=== PATIENT | male | born 1985 | race Caucasian/White ===

== ENCOUNTER 2019-08-13 08:51 | Emergency (ER) | payer OTHER ==
[~2019-08-13] VITALS: Ht 185.4 cm; Wt 199.0 kg
--- NOTE | 2019-08-13 09:40 | PHYS DOC ---
General Adult EDM: Chief Complaint: MULTIPLE COMPLAINTS HPI: HPI: 34-year-old male presents with bilateral axillary lymph node swelling. The patient has had a weird constellation of symptoms from headache to fatigue to lymph node swelling in his neck and now bilateral axilla. He has been staying home as much as possible during the COVID-19 outbreak. He has no specific risk factors for it. His family was recently tested for strep and his son was positive but he and his are negative. He was tested for COVID-19, but the test is not back yet. He presents today because he just does not understand what all these weird symptoms mean. He is concerned about the axillary lymph no de swelling. He is still able to exercise and run, but his exercise tolerance is greatly reduced. 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 He denies fever chills. Review of Systems: Review of Systems: Constitutional: Fatigue. Denies fever or chills Eyes: Denies change in visual acuity HENT: Denies nasal congestion or sore throat Respiratory: Denies cough or shortness of breath Cardiovascular: Denies chest pain or edema GI: Denies abdominal pain, nausea, vomiting, bloody stools or diarrhea : Denies dysuria Musculoskeletal: Denies back pain or joint pain Integument: Denies rash Neurologic: Denies headache, focal weakness or sensory changes Endocrine: Denies polyuria or polydipsia Lymphatic: Bilateral enlarged lymph nodes of the axilla Psychiatric: Denies depression or anxiety Heart Score: Risk Factors: Risk Factors: DM, Current or recent (<one month) smoker, HTN, HLP, family history of CAD, obesity. Risk Scores: Score 0 - 3: 2.5% MACE over next 6 weeks - Discharge Home Score 4 - 6: 20.3% MACE over next 6 weeks - Admit for Clinical Observation Score 7 - 10: 72.7% MACE over next 6 weeks - Early Invasive Strategies Physical Exam: PE: Constitutional: Well developed, well nourished, no acute distress, non-toxic appearance. [] HENT: Normocephalic, atraumatic, bilateral external ears normal, oropharynx moist, no oral exudates, nose normal. [] Eyes: PERRLA, EOMI, conjunctiva normal, no discharge. [] Neck: Normal range of motion, no tenderness, supple, no stridor. [] Cardiovascular:Heart rate regular rhythm, no murmur [] Lungs & Thorax: Bilateral breath sounds clear to auscultation [] Abdomen: Bowel sounds normal, soft, no tenderness, no masses, no pulsatile masses. [] Skin: Warm, dry, no erythema, no rash. Palpable lymph nodes in the bilateral axilla. [] Back: No tenderness, no CVA tenderness. [] Extremities: No tenderness, no cyanosis, no clubbing, ROM intact, no edema. [] Neurologic: Alert and oriented X 3, normal motor function, normal sensory function, no focal deficits noted. [] Psychologic: Affect normal, judgement normal, mood concerned. [] EKG: EKG: [] Radiology/Procedures: Radiology/Procedures: [] Impressions: CT ABD PELV W/ IV CONTRST ONLY History: Reason: RLQ abdominal pain Technique: After the administration of intravenous contrast, CT imaging was performed of the abdomen and pelvis. Multiplanar images are reviewed. Exposure: One or more of the following individualized dose reduction techniques were utilized for this examination: 1. Automated exposure control 2. Adjustment of the mA and/or kV according to patient size 3. Use of iterative reconstruction technique. Comparison: None Findings: Lower chest: No consolidation or pleural effusion. Abdomen and pelvis: The liver, spleen, adrenal glands, pancreas and gallbladder are unremarkable. No biliary ductal dilatation. Normal appearance of the kidneys. No hydronephrosis. 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 No occlusion. The duodenum is involved in the swirling. No evidence of bowel obstruction. Postoperative changes gastric bypass. Normal appendix. Small mesenteric lymph nodes. No pathologically enlarged lymph nodes. No ascites. IUD noted within the uterus. Mild atheromatous plaque throughout the nonaneurysmal abdominal aorta and branch vessels. Bones: Multilevel lumbar spondylosis most prominent L4-L5. Mild to moderate canal narrowing L4-L5. Impression: 1. 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 No occlusion. No evidence of bowel obstruction. 2. Postop changes gastric bypass. Electronically signed by: Hussain Merritt DO (08/13/2019 8:54 AM) [id number] DICTATED AND SIGNED BY: HUSSAIN MERRITT DO DATE: 08/13/19 3015 CC: ERIKA BLOCK DO; PCP,NO ~ Course & Med Decision Making: Course & Med Decision Making Pertinent Labs and Imaging studies reviewed. (See chart for details) The patient's labs are unremarkable. His CT does not show any abnormal findings. It still possible that this is COVID-19 related. I have advised that he wait for the results of his test. He can follow-up with his primary care physician. He is stable for discharge at this time. [] Dragon Disclaimer: Dragmeredith Disclaimer: This electronic medical record was generated, in whole or in part, using a voice recognition dictation system. Departure Departure: Impression: Primary Impression: Viral syndrome Disposition: HOME/RESIDENCE PRIOR TO ADM Condition: STABLE Referrals: EMMANUEL KEITH (PCP) Patient Instructions: Viral Syndrome ERIKA BLOCK DO August 13, 2019 09:40
[2019-08-13] MEDS ORDERED: IV NORMAL SALINE 1,000ML 1,000 ML IV ONE (09:45)
[2019-08-13] MEDS ORDERED: IOHEXOL 300 MG/ML 75 ML VIAL. IV ONE (09:45)
[2019-08-13 10:16] LABS: BASO % 0 % (0-3); EOS # 0.1 x10^3/uL (0.0-0.7); EOS % 2 % (0-3); HEMATOCRIT 45.7 % (39.0-53.0); HEMOGLOBIN 15.9 g/dL (13.0-17.5); LYMPH # 1.9 x10^3/uL (1.0-4.8); LYMPH % 32 % (24-48); MEAN CORPUSCULAR HEMOGLOBIN 32 pg (25-35); MEAN CORPUSCULAR HGB CONC 35 g/dL (31-37); MEAN CORPUSCULAR VOLUME 91 fL (79-100); MONO # 0.4 x10^3/uL (0.0-1.1); MONO % 6 % (0-9); NEUT # 3.7 x10^3uL (1.8-7.7); NEUT % 60 % (31-73); PLATELET COUNT 199 x10^3/uL (140-400); RED BLOOD COUNT 5.02 x10^6/uL (4.30-5.70); RED CELL DISTRIBUTION WIDTH 11.9 % (11.5-14.5); WHITE BLOOD COUNT 6.1 x10^3/uL (4.0-11.0)
[2019-08-13 10:19] LABS: CALCIUM 9.4 mg/dL (8.5-10.1); POTASSIUM 4.1 mmol/L (3.5-5.1)
[2019-08-13 10:26] LABS: ALBUMIN 4.3 g/dL (3.4-5.0); ALBUMIN/GLOBULIN RATIO 1.3 (1.0-1.7); TOTAL BILIRUBIN 0.8 mg/dL (0.2-1.0); TOTAL PROTEIN 7.5 g/dL (6.4-8.2)
--- NOTE | 2019-08-13 10:33 | RAD ---
CT CHEST WO CONTRAST History: Swollen axillary lymph nodes. Technique: Noncontrast CT of the chest was performed. Coronal and sagittal reconstructions were performed. Exposure: One or more of the following individualized dose reduction techniques were utilized for this examination: 1. Automated exposure control 2. Adjustment of the mA and/or kV according to patient size 3. Use of iterative reconstruction technique. Comparison: None Findings: Chest: No pathologic axillary, mediastinal or hilar lymph nodes. Calcified left hilar lymph node and calcified left upper lobe nodule, likely prior granulomatous disease. No consolidation or pleural effusion. 2 mm right middle lobe anterior pleural-based nodule (series 2 image 77). Mild gynecomastia. Upper abdomen: The imaged upper abdomen is unremarkable. Bones: No pathologic osseous lesions. Postoperative changes lower cervical spine. Impression: 1. No acute thoracic pathology. No pathologic lymphadenopathy. 2. Tiny right middle lobe pulmonary nodule. If high risk recommend one-year follow-up. Electronically signed by: Hussain Lucas DO (08/13/2019 10:30 AM) [id number]
[2019-08-13 11:05] VITALS: BP 130/72
== END 2019-08-13 11:10 | disposition home or self-care (01) ==
LOC: ER 08:51
DX: B34.9 Viral infection, unspecified (principal)
CPT/HCPCS: 36415; 71250; 80053; 82550; 85025; 85379; 86140; 99284-25; J7030

== ENCOUNTER → 2020-03-06 | Outpatient (CLI) | payer OTHER ==
--- NOTE | 2020-03-06 09:02 | RAD ---
PQRS Compliance Statement: One or more of the following individualized dose reduction techniques were utilized for this examinat ion: 1. Automated exposure control 2. Adjustment of the mA and/or kV according to patient size 3. Use of iterative reconstruction technique CT THORAX WO 03/06/2020 7:48 AM Indication: Left lobe lung nodule COMPARISON: CT chest 08/13/2019 TECHNIQUE: Multiple axial CT images of the chest were obtained with intravenous contrast. Coronal and sagittal reformats are provided. FINDINGS: There is a 5 mm calcified granuloma in the left upper lobe. 2 mm subpleural solid noncalcified pulmon joe nodule identified in the super segment left lower lobe (series 2, image 120). No pleural effusion s, pulmonary vascular congestion or pneumothorax. Lungs are clear. Stable 3 mm solid noncalcified pul monary nodule in the lateral segment right middle lobe (series 2, image 218). No new or enlarging manny id noncalcified pulmonary nodules. Thyroid gland is normal in appearance. Anterior cervical discectom y and fusion hardware within the lower cervical spine is only partially profiled. No suspicious osseo us abnormality is identified. Heart size is within normal limits. No pericardial effusion. Thoracic a stephnaia is normal in course and caliber. Visualized portions of the upper abdomen appear normal. IMPRESSION: Stable 3 mm solid noncalcified pulmonary nodule in the right middle lobe and 2 mm nodule in the super ior segment left lower lobe. Findings favor benign etiology in this age group such as noncalcified gr anulomatous disease. Electronically signed by: Margaret Manriquez MD (03/06/2020 8:59 AM) [facility]
== END ==
LOC: CT 07:44
PROVIDERS: ATTEND Nurse Practitioner Family
DX: R91.1 Solitary pulmonary nodule (principal); M43.22 Fusion of spine, cervical region
CPT/HCPCS: 71250

== ENCOUNTER 2020-07-25 11:39 | Emergency (ER) | payer OTHER ==
[~2020-07-25] VITALS: Ht 185.4 cm; Wt 86.8 kg
--- NOTE | 2020-07-25 12:09 | PHYS DOC ---
Past History Past Medical History: Other Additional Past Medical Histor: C7 FUSION, ULNAR DECOMPRESSION, HERNIA REPAIR Alcohol Use: Occasionally Adult General Chief Complaint Chief Complaint: NEAR [facility] HPI Patient is an otherwise healthy, 35-year-old male in the who presents for chief complaint of lightheadedness. States that he got up this morning and ran 3 miles as he does every morning, and ate some oatmeal and went to work. States that while he was at work sitting at his desk during a video call, felt lightheaded. States that lasted a few minutes and then went away. States he got up, got some water and came back and sat down and he had another episode of the same. States that currently in the ED, he has no symptoms but was directed to the ED by superiors. Denies any recent travel, illnesses, traumas, fevers, cold/flu/Covid symptoms, or known ill contacts. States he has been eating normally for him. States he does not drink a whole lot of water though and his urine has been dark over the last day but denies any dysuria or hematuria. Denies any family history of thyroid issues, cardiovascular disease at his age. Review of Systems Review of Systems Review of systems otherwise unremarkable except noted in HPI Allergies Allergies Allergies Coded Allergies Type Severity Reaction Last Updated Verified iohexol Allergy Intermediate RASH 08/13/19 Yes Physical Exam Physical Exam Constitutional: Well developed, well nourished, no acute distress, non-toxic appearance. [] HENT: Normocephalic, atraumatic, oropharynx dry, no oral exudates Eyes: PERRLA, EOMI, conjunctiva normal, no discharge. [] Neck: Normal range of motion, Cardiovascular:Heart rate regular rhythm, no murmur [] Lungs & Thorax: No respiratory distress Abdomen: soft, no tenderness, no masses, no pulsatile masses. [] Skin: Warm, dry, no erythema, no rash. [] Back: no CVA tenderness. [] Extremities: No tenderness, no cyanosis, no clubbing, ROM intact, no edema. [] Neurologic: Alert and oriented X 3, normal motor function, normal sensory function, cranial nerves intact, able to ambulate without issue no focal deficits noted. [] Psychologic: Affect normal, judgement normal, mood normal. [] EKG EKG [] Radiology/Procedures Radiology/Procedures [] Heart Score C/O Chest Pain: No Risk Factors: Risk Factors: DM, Current or recent (<one month) smoker, HTN, HLP, family history of CAD, obesity. Risk Scores: Risk Factors: DM, Current or recent (<one month) smoker, HTN, HLP, family history of CAD, obesity. Course & Med Decision Making Course & Med Decision Making Patient is a 35-year-old male who presents with a chief complaint of lightheadedness Vital signs not concerning. Physical exam noted above. EKG noted above and normal. Troponin normal. Low risk Wells. PERC negative. Oral hydration in the emergency department with approximately 2 L of fluid. Laboratory analysis not concerning. Vital signs with lowering of the heart rate and blood pressure after oral rehydration. Discussed findings with patient and family. Patient states he is asymptomatic. Able to ambulate without issue in onset of symptoms. Patient felt safe to discharge home. Gave strict return precautions to the emergency department. Advised to follow- up with primary care tomorrow to discuss ED visit and set up a follow-up visit. Family grateful, verbalized understanding and agreed with plan of discharge. [] Dragon Disclaimer Dragon Disclaimer This electronic medical record was generated, in whole or in part, using a voice recognition dictation system. Departure Departure: Impression: Primary Impression: Light-headed feeling Disposition: 01 HOME / SELF CARE / HOMELESS Condition: GOOD Referrals: LESLIE PRIESTP- (PCP) Patient Instructions: Dehydration, Adult, Dehydration, Pediatric, [id number], Dizziness Additional Instructions: Please read all of the attached information. Please continue to hydrate and eat appropriate meals especially since you exercise heavily. Please follow-up with your primary care physician as soon as you can to update on ED visit and set up a follow-up visit soon as you can. Please come back to the emergency department immediately with new or concerning symptoms as discussed. SISSY CORTES MD July 25, 2020 12:09
[2020-07-25 12:27] LABS: BASO % 0 % (0-3); EOS # 0.1 x10^3/uL (0.0-0.7); EOS % 1 % (0-3); HEMATOCRIT 44.8 % (39.0-53.0); HEMOGLOBIN 15.4 g/dL (13.0-17.5); LYMPH # 2.1 x10^3/uL (1.0-4.8); LYMPH % 35 % (24-48); MEAN CORPUSCULAR HEMOGLOBIN 32 pg (25-35); MEAN CORPUSCULAR HGB CONC 34 g/dL (31-37); MEAN CORPUSCULAR VOLUME 93 fL (79-100); MONO # 0.4 x10^3/uL (0.0-1.1); MONO % 6 % (0-9); NEUT # 3.5 x10^3uL (1.8-7.7); NEUT % 58 % (31-73); PLATELET COUNT 173 x10^3/uL (140-400); RED BLOOD COUNT 4.83 x10^6/uL (4.30-5.70); RED CELL DISTRIBUTION WIDTH 12.1 % (11.5-14.5)
[2020-07-25 12:36] LABS: GFR 84.5; POTASSIUM 3.6 mmol/L (3.5-5.1)
[2020-07-25 13:18] VITALS: BP 118/73
--- NOTE | 2020-07-25 14:17 | EKG ---
[address] [address] Test Date: 2020-07-25 Test Time: 11:58:52 Pat Name: LAKEISHA CHRISTIANSON Department: Room: Gender: M Box Office Attendant: JUANIS : 1985 Requested By: SISSY CORTES Order Number: [id number] Reading MD: Measurements Intervals [place] Rate: 75 P: 49 MD: 220 QRS: 62 QRSD: 92 T: 24 QT: 336 QTc: 378 Interpretive Statements SINUS RHYTHM PROLONGED MD INTERVAL ABNORMAL ECG RI6.02 No previous ECG available for comparison
== END 2020-07-25 13:21 | disposition home or self-care (01) ==
LOC: ER 11:39
DX: R42 Dizziness and giddiness (principal); Z88.6 Allergy status to analgesic agent
CPT/HCPCS: 36415; 80048; 84484; 85025; 93005; 99284-25